=== PATIENT | female | born 1950 | race Caucasian/White ===

== ENCOUNTER 2020-05-08 11:17 | Outpatient (REF) | payer MEDICARE, SELFPAY ==
[2020-05-08 12:43] LABS: Glucose Urine UA NEG (NEG); Leukocyte Esterase Urine NEG (NEG); Nitrite Urine NEG (NEG); Specific Gravity - Urine 1.015 (1.005-1.025); Urine Blood NEG (NEG); Urine Ketones NEG (NEG); Urine Protein NEG (NEG-TRACE)
[2020-05-08 12:47] LABS: MANUAL DIFF FLAG NO
[2020-05-08 12:48] LABS: Appearance Urine CLEAR; Color Urine YELLOW
[2020-05-08 12:56] LABS: RBC Urine 0 /HPF (0); Squamous Epithelial Cell Urine TRACE /LPF; WBC Urine 0-2 /HPF (0-4)
[2020-05-08 13:00] LABS: Basophils Percent Auto 0.6 % (0-2); Eosinophils Absolute Auto 0.1 X10*3/uL (0.0-0.4); Hemoglobin 11.9 g/dl (12.0-16.0); Imm Gran Abs Auto 0.01 X10*3/uL (0.00-0.03); Imm Gran Pct Auto 0.2 % (0.0-0.4); Lymphocytes Absolute Auto 1.4 X10*3/uL (1.2-4.9); Mean Corpuscular HGB Conc 32.2 g/dl (31.0-35.0); Mean Corpuscular Hemoglobin 27.6 pg (27.0-33.0); Mean Corpuscular Volume 85.8 fL (80-98); Mean Platelet Volume 10.6 fL (9.4-12.3); Monocytes Absolute Auto 0.4 X10*3/uL (0.1-1.2); Monocytes Percent Auto 7.7 % (2-11); Neutrophils Absolute Auto 3.4 X10*3/uL (2.0-8.3); Neutrophils Percent Auto 63.5 % (45-73); Platelet Count 259 X10*3/uL (160-400); Red Blood Count 4.31 X10*6/uL (4.20-5.50); White Blood Count 5.4 X10*3/uL (4.8-10.8)
[2020-05-08 13:24] LABS: Alanine Aminotransferase 41 U/L (0-31); Albumin Level 4.3 g/dL (3.5-5.0); Alkaline Phosphatase 79 U/L (39-117); Anion Gap 11 (12-20); Aspartate Amino Transferase 28 U/L (5-31); Bilirubin Total 0.4 mg/dL (0.0-1.0); Blood Urea Nitrogen 8 mg/dL (9-16); Carbon Dioxide 29 mmol/L (22-29); Chloride 101 mmol/L (96-108); Cholesterol 161 mg/dL; Estimated Glomerular Filt Rate > 60; Glucose Fasting 82 mg/dL (60-99); HDL Cholesterol 43 mg/dL; LDL Cholesterol Calculated 84 mg/dl; Potassium 4.4 mmol/l (3.3-5.1); Sodium 137 mmol/L (135-145); Total Protein 7.4 g/dL (6.5-8.0); Triglycerides 171 mg/dL
[2020-05-08 13:47] LABS: TSH reflex Free T4 1.04 mIU/mL (0.32-4.0); Vitamin D 25-OH Total 45.3 ng/mL (>30)
[2020-05-08 14:37] LABS: Folate 19.4 ng/mL (> or = 4.0); Vitamin B12 543 pg/mL (200-900)
== END 2020-05-08 11:18 | disposition home or self-care (01) ==
LOC: HO.LAB 11:17
PROVIDERS: PCP Internal Medicine; Visit Provider Internal Medicine
DX: I10 Essential (primary) hypertension (principal); E78.5 Hyperlipidemia, unspecified; E87.1 Hypo-osmolality and hyponatremia; I67.9 Cerebrovascular disease, unspecified; R41.3 Other amnesia; D64.9 Anemia, unspecified; E55.9 Vitamin D deficiency, unspecified; E78.00 Pure hypercholesterolemia, unspecified
CPT/HCPCS: 36415; 80053; 80061; 81001; 82306; 82607; 82746; 84443; 85025

== ENCOUNTER 2020-09-10 15:55 | Outpatient (REF) | payer MEDICARE, SELFPAY ==
--- NOTE | ~2020-09-10 | XR_ITS ---
EXAMINATION: XR HIP, RIGHT CLINICAL INFORMATION: Pain right hip. COMPARISON: None TECHNIQUE: Two views of the right hip. FINDINGS: There are prominent osteoarthritic changes right hip with marked narrowing superior joint, subchondral sclerosis, subchondral cysts, and osteophytes. There are no visible erosive changes. Soft tissue planes are unremarkable. There are degenerative changes also noted lower lumbar spine with disc narrowing and spurring L4-L5 and L5-S1. XR/XR hip RT min 2V IMPRESSION: 1. Prominent osteoarthritis right hip. 2. Degenerative changes lower lumbar spine.
== END 2020-09-10 15:56 | disposition home or self-care (01) ==
LOC: HO.XRAY 15:55
PROVIDERS: PCP Internal Medicine; Visit Provider Internal Medicine
DX: M25.551 Pain in right hip (principal)
CPT/HCPCS: 73502

== ENCOUNTER → 2020-10-14 11:01 | Outpatient (BNVA) | payer MEDICARE, SELFPAY | PROVIDERS: PCP Internal Medicine; Visit Provider Orthopaedic Surgery | DX: Z13.89 Encounter for screening for other disorder (principal) | CPT/HCPCS: 99202 ==

== ENCOUNTER 2020-12-29 14:00 | Outpatient (RCR) | payer MEDICARE, SELFPAY ==
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
--- NOTE | 2020-12-29 20:01 | MHC.PT.DC ---
[facility] [place] Office [place] Office [place] Office [address] Juan Diego Zimmer [facility] [phone] F: [phone] F: [phone] F: [phone] F: [phone] Physical Therapy Discharge Report Diagnosis: UNILATERAL PRIMARY OA RIGHT HIP Date of Surgery: Date of Evaluation: 11/03/20 Date of Discharge: 12/29/20 Treatments to Date: 13 Cancellations to Date: 0 No Shows to Date: 0 Discharge Status: Independent with HEP Recommend MD Follow-up Discharge Summary: Lakshmi has been an active participant in her therapy in the clinic with poor home program participation. Her program was extended as a trial of ionto dexamethasone improved her lateral hip pain as it seemed she may have developed some bursitis at the greater trochanter and a re-commitment to her home program was agreed upon. Lakshmi has made some improvement of her gait, is improved of her lateral hip symptoms, though persists with C pattern R hip pain and continues with functional limitations. Electronically signed by: Escobar Tse PT. Please sign and return to therapist. Thank you for your referral.
== END 2020-12-30 14:40 | disposition home or self-care (01) ==
LOC: HO.PTCHIC 14:00
PROVIDERS: PCP Internal Medicine; Visit Provider Orthopaedic Surgery
DX: M16.11 Unilateral primary osteoarthritis, right hip (principal)
CPT/HCPCS: 97033; 97110; 97116; 97140; 97162

== ENCOUNTER → 2021-01-26 08:05 | Outpatient (BNVA) | payer MEDICARE, SELFPAY | PROVIDERS: PCP Internal Medicine; Visit Provider Orthopaedic Surgery | DX: M16.11 Unilateral primary osteoarthritis, right hip (principal) | CPT/HCPCS: 99212 ==

== ENCOUNTER → 2021-02-19 10:20 | Outpatient (BNVA) | payer MEDICARE, SELFPAY | PROVIDERS: PCP Internal Medicine; Visit Provider Orthopaedic Surgery | DX: M16.11 Unilateral primary osteoarthritis, right hip (principal) | CPT/HCPCS: 99212 ==

== ENCOUNTER 2021-04-09 13:30 | Outpatient (REF) | payer MEDICARE, SELFPAY ==
--- NOTE | ~2021-04-09 | MM_ITS ---
EXAMINATION: BONE DENSITOMETRY CLINICAL INDICATION: Age-related osteoporosis without current pathological fracture. COMPARISON: Baseline BD dated 05/19/2009. TECHNIQUE: Using a [employer] DXA System (software version: 13.1) manufactured by [employer], dual-energy x-ray absorptiometry was performed of the lumbar spine and left hip. The images are of good technical quality. Summary results are attached. FINDINGS: AP SPINE L1-L4: Current: BMD 1.174 g/cm2, Z-score 1.9, T-score 0.0, normal, 10.9% decrease from baseline (<5% change is not significant). Baseline: BMD 1.317 g/cm2. LEFT FEMUR, NECK: Current: BMD 0.736 g/cm2, Z-score -0.2, T-score -2.2, osteopenia. Baseline: BMD 0.954 g/cm2. LEFT FEMUR, TOTAL: Current: BMD 0.869 g/cm2, Z-score 0.7, T-score -1.1, osteopenia, 16.1% decrease from baseline (<5% change is not significant). Baseline: BMD 1.036 g/cm2. IDENTIFIED RISK FACTORS: Height loss, menopause, hysterectomy, bilateral oophorectomy. HISTORY OF FRACTURE: None listed. MEDICATIONS: Multivitamin. MM/XR DEXA axial skeleton IMPRESSION: 1. DIAGNOSIS: Osteopenia based on the lowest T-score value of -2.2 in the femoral neck applying World Health Organization criteria. 2. 10-YEAR FRACTURE RISK PREDICTION, FRAX: Major osteoporotic fracture (clinical spine, forearm, hip or shoulder) 12.6%. Hip fracture 3.1%. 3. Treatment Recommendations: NOF guidelines recommend consideration for treatment in postmenopausal women and men age 50 and older presenting with the following: -A hip or vertebral (clinical or morphometric) fracture. -T-score less than or equal to -2.5 at the femoral neck or spine after appropriate evaluation to exclude secondary causes. -Low bone mass at the hip or spine and a 10-year fracture probability by FRAX of greater than or equal to 3% for hip fracture or greater than or equal to 20% for major osteoporotic fracture based on the [place] adapted WHO algorithm. 4. Other Recommendations: All treatment decisions require clinical judgment and consideration of individual patient factors, including patient preferences, comorbidities, previous drug use, risk factors not captured in the FRAX model (e.g. frailty, falls, vitamin D deficiency, increased bone turnover, interval significant decline in bone density) and possible under or overestimation of fracture risk by FRAX. Additional medical evaluation for secondary cause of low bone mineral density may be appropriate. FUTURE SCAN RECOMMENDATION: People with diagnosed cases of osteoporosis or at high risk for fracture should have regular bone mineral density tests. For patients eligible for Medicare, routine testing is allowed once every 2 years. The testing frequency can be increased to one year for patients who have rapidly progressing disease, those who are receiving or discontinuing medical therapy to restore bone mass, or have additional risk factors.
--- NOTE | ~2021-04-09 | MM_ITS ---
EXAMINATION: MM SCREENING DIGITAL BREAST TOMOSYNTHESIS, BILATERAL CLINICAL INFORMATION: Screening. Asymptomatic. The lifetime risk of breast cancer based on the Tyrer-Cuzick Model is 3%. COMPARISON: Mammography: 02/26/2020, 11/26/2018, 11/06/2017 TECHNIQUE: Digital breast tomosynthesis is performed in both the craniocaudal and mediolateral oblique views along with computer-aided detection (CAD). Synthesized 2D images are generated from the tomosynthesis. FINDINGS: There are scattered areas of fibroglandular density (ACR BI-RADS breast composition Category b). Parenchymal pattern is similar to prior studies. There is no developing density or interval mass or architectural abnormality. Bilateral scattered benign round and vascular calcifications are again seen. The axilla and skin contours are unremarkable. No significant changes. MM/MM tomosynthesis screening BI IMPRESSION: No mammographic evidence of malignancy. ASSESSMENT: BI-RADS 2: Benign RECOMMENDATION: Routine annual mammography screening. This patient's information was entered into a reminder system with a target due date for their next mammogram.
== END 2021-04-09 13:31 | disposition home or self-care (01) ==
LOC: HO.MAMMO 13:30
PROVIDERS: Visit Provider Internal Medicine
DX: Z12.31 Encounter for screening mammogram for malignant neoplasm of breast (principal); Z13.820 Encounter for screening for osteoporosis; M81.0 Age-related osteoporosis without current pathological fracture; Z78.0 Asymptomatic menopausal state; Z79.899 Other long term (current) drug therapy
CPT/HCPCS: 77063; 77067; 77080

== ENCOUNTER 2021-04-15 11:45 | Outpatient (REF) | payer MEDICARE, SELFPAY ==
--- NOTE | ~2021-04-15 | XR_ITS ---
EXAMINATION: XR PELVIS CLINICAL INFORMATION: Hip pain COMPARISON: Previous x-ray right hip August 2020 TECHNIQUE: AP view of the pelvis. FINDINGS: There is severe arthritis of the right hip joint with joint space narrowing, osteophyte formation and subchondral cyst formation. This is similar to previous x-ray August 2020. There is mild arthritis at the left hip joint with joint space narrowing and osteophyte formation. Also the pelvis are unremarkable. The joint spaces are otherwise normal. Soft tissues are normal. There are degenerative changes of the visualized lower lumbar spine. XR/XR pelvis 1-2V IMPRESSION: Bilateral hip arthritis, right greater than left.
== END 2021-04-15 11:46 | disposition home or self-care (01) ==
LOC: HO.HOSX 11:45
PROVIDERS: Visit Provider Orthopaedic Surgery
DX: M16.11 Unilateral primary osteoarthritis, right hip (principal)
CPT/HCPCS: 72170; 99212

== ENCOUNTER 2021-04-26 12:22 | Outpatient (REF) | payer MEDICARE, SELFPAY ==
[2021-04-26 12:35] LABS: MANUAL DIFF FLAG NO
[2021-04-26 12:59] LABS: Basophils Percent Auto 0.8 % (0-2); Eosinophils Percent Auto 0.4 % (0-4); Hematocrit 37.9 % (37.0-47.0); Hemoglobin 12.2 g/dl (12.0-16.0); Imm Gran Abs Auto 0.01 X10*3/uL (0.00-0.03); Imm Gran Pct Auto 0.2 % (0.0-0.4); Lymphocytes Absolute Auto 1.4 X10*3/uL (1.2-4.9); Lymphocytes Percent Auto 25.8 % (20-40); Mean Corpuscular HGB Conc 32.2 g/dl (31.0-35.0); Mean Corpuscular Hemoglobin 28.8 pg (27.0-33.0); Mean Corpuscular Volume 89.4 fL (80.0-98.0); Mean Platelet Volume 9.4 fL (9.4-12.3); Monocytes Absolute Auto 0.6 X10*3/uL (0.1-1.2); Monocytes Percent Auto 11.1 % (2-11); Neutrophils Absolute Auto 3.2 x10*3/uL (2.0-8.3); Neutrophils Percent Auto 61.7 % (45-73); Platelet Count 286 X10*3/uL (160-400); Red Blood Count 4.24 X10*6/uL (4.20-5.50); Red Cell Distribution Width 13.9 % (11.0-16.0); White Blood Count 5.2 X10*3/uL (4.8-10.8)
[2021-04-26 13:03] LABS: Appearance Urine HAZY; Color Urine YELLOW; Glucose Urine UA NEG (NEG); Leukocyte Esterase Urine NEG (NEG); Nitrite Urine NEG (NEG); Specific Gravity - Urine 1.025 (1.005-1.025); Urine Blood NEG (NEG); Urine Ketones 5 MG/DL (NEG); Urine Protein TRACE MG/DL (NEG-TRACE)
[2021-04-26 13:24] LABS: Alanine Aminotransferase 41 U/L (0-31); Albumin Level 4.6 g/dL (3.5-5.0); Alkaline Phosphatase 66 U/L (39-117); Anion Gap 15 (12-20); Aspartate Amino Transferase 34 U/L (5-31); Bilirubin Total 1.1 mg/dL (0.0-1.0); Blood Urea Nitrogen 16 mg/dL (9-16); Calcium 9.6 mg/dL (8.4-10.2); Carbon Dioxide 24 mmol/L (22-29); Chloride 105 mmol/L (96-108); Cholesterol 226 mg/dL; Estimated Glomerular Filt Rate > 60; Glucose Fasting 103 mg/dL (60-99); HDL Cholesterol 70 mg/dL; LDL Cholesterol Calculated 119 mg/dl; Potassium 4.5 mmol/L (3.3-5.1); Sodium 139 mmol/L (135-145); Triglycerides 188 mg/dL
[2021-04-26 13:46] LABS: TSH reflex Free T4 1.51 uIU/mL (0.32-4.0)
[2021-04-26 14:16] LABS: Folate > 20.0 ng/mL (> or = 4.0); Vitamin B12 352 pg/mL (200-900)
== END 2021-04-26 12:23 | disposition home or self-care (01) ==
LOC: HO.LAB 12:22
PROVIDERS: PCP Internal Medicine; Visit Provider Internal Medicine
DX: D64.9 Anemia, unspecified (principal); I10 Essential (primary) hypertension; I67.89 Other cerebrovascular disease; R41.3 Other amnesia; E78.00 Pure hypercholesterolemia, unspecified; E87.1 Hypo-osmolality and hyponatremia
CPT/HCPCS: 36415; 80053; 80061; 81003; 82607; 82746; 84443; 85025

== ENCOUNTER 2021-06-01 09:59 | Outpatient (REF) | payer MEDICARE, SELFPAY ==
--- NOTE | 2021-06-01 11:46 | ECG_ITS ---
Test Reason : preproc exam Blood Pressure : / mmHG Vent. Rate : 066 BPM Atrial Rate : 066 BPM P-R Int : 140 ms QRS Dur : 108 ms QT Int : 432 ms P-R-T Axes : 061 086 062 degrees QTc Int : 452 ms Normal sinus rhythm Incomplete right bundle branch block Borderline ECG No previous ECGs available Referred By: Valdemar Palacios Electronically Signed By:JESSE BLAIR MD
[2021-06-01 11:50] LABS: MANUAL DIFF FLAG NO
[2021-06-01 12:10] LABS: Basophils Absolute Auto 0.1 X10*3/uL (0.0-0.2); Basophils Percent Auto 0.8 % (0-2); Eosinophils Absolute Auto 0.1 X10*3/uL (0.0-0.4); Eosinophils Percent Auto 0.7 % (0-4); Hematocrit 37.8 % (37.0-47.0); Hemoglobin 11.9 g/dl (12.0-16.0); Imm Gran Abs Auto 0.04 X10*3/uL (0.00-0.03); Imm Gran Pct Auto 0.5 % (0.0-0.4); Lymphocytes Absolute Auto 1.5 X10*3/uL (1.2-4.9); Lymphocytes Percent Auto 20.1 % (20-40); Mean Corpuscular HGB Conc 31.5 g/dl (31.0-35.0); Mean Corpuscular Hemoglobin 28.5 pg (27.0-33.0); Mean Corpuscular Volume 90.6 fL (80.0-98.0); Mean Platelet Volume 9.6 fL (9.4-12.3); Monocytes Absolute Auto 0.4 X10*3/uL (0.1-1.2); Monocytes Percent Auto 5.1 % (2-11); Neutrophils Absolute Auto 5.4 x10*3/uL (2.0-8.3); Neutrophils Percent Auto 72.8 % (45-73); Platelet Count 290 X10*3/uL (160-400); Red Blood Count 4.17 X10*6/uL (4.20-5.50); Red Cell Distribution Width 13.6 % (11.0-16.0); White Blood Count 7.5 X10*3/uL (4.8-10.8)
[2021-06-01 12:39] LABS: Anion Gap 14 (12-20); Blood Urea Nitrogen 11 mg/dL (9-16); Calcium 9.5 mg/dL (8.4-10.2); Carbon Dioxide 23 mmol/L (22-29); Chloride 105 mmol/L (96-108); Estimated Glomerular Filt Rate > 60; Glucose Random 86 mg/dL (60-115); Potassium 4.4 mmol/L (3.3-5.1); Sodium 138 mmol/L (135-145)
== END 2021-06-01 10:00 | disposition home or self-care (01) ==
LOC: HO.LAB 09:59
PROVIDERS: PCP Internal Medicine; Visit Provider Orthopaedic Surgery
DX: Z01.812 Encounter for preprocedural laboratory examination (principal); Z01.810 Encounter for preprocedural cardiovascular examination
CPT/HCPCS: 36415; 80048; 85025; 93005

== ENCOUNTER 2021-06-15 13:49 | Outpatient (REF) | payer MEDICARE, SELFPAY ==
[2021-06-16 11:11] LABS: MRSA Nasal PCR NEGATIVE (Negative); SA Nasal PCR NEGATIVE (Negative)
== END 2021-06-15 13:50 | disposition home or self-care (01) ==
LOC: HO.LNP 13:49
PROVIDERS: Visit Provider Orthopaedic Surgery
DX: Z01.812 Encounter for preprocedural laboratory examination (principal); I10 Essential (primary) hypertension; E78.00 Pure hypercholesterolemia, unspecified; E55.9 Vitamin D deficiency, unspecified; R79.89 Other specified abnormal findings of blood chemistry
CPT/HCPCS: 87081; 87640; 87641

== ENCOUNTER → 2021-06-24 12:58 | Outpatient (BNVA) | payer MEDICARE, SELFPAY | PROVIDERS: Visit Provider Physician Assistant | DX: Z01.818 Encounter for other preprocedural examination (principal); M16.11 Unilateral primary osteoarthritis, right hip | CPT/HCPCS: 99202; 99212 ==

== ENCOUNTER 2021-07-14 06:15 | Inpatient (IN) | payer MEDICARE, SELFPAY ==
[2021-06-15 12:51] VITALS: BP 160/73; PULSE 52; RESP 16; O2SAT 99; BMI 21.4
--- NOTE | 2021-07-13 12:19 | HO.ANESPROP2 ---
Documented by User: Cathy Riggins NP 07/13/21 12:22 HPI - Anesthesia Eval Consult details Narrative: 71yo F for Right Hip Total Replacement PCP cleared Hx of hyponatremia, ? r/t drinking, which patient has now stopped. Last serum Na wnl. PMFSH Active Problems Active Problems: All Active Problems (Updated 06/17/21 @ 04:22 by Amadeo Page MD) Pre-operative exam (Acute) Elevated LFTs (Acute) Hip osteoarthritis (Acute) Liver cyst (Acute) Primary osteoarthritis of right hip (Acute) Right hip pain (Acute) Vitamin D deficiency (Acute) Anemia (Acute) Memory impairment (Acute) Cerebral microvascular disease (Acute) Hyponatremia (Acute) Pure hypercholesterolemia (Acute) Benign essential hypertension (Acute) Past Medical History Medical History Anemia Benign essential hypertension Cerebral microvascular disease Hyponatremia Memory impairment Pure hypercholesterolemia Right hip pain Vitamin D deficiency Family History Family History Father Colon cancer Mother Melanoma Brother Dementia Surgical History Surgical History History of colonoscopy History of surgery History of tonsillectomy History of total abdominal hysterectomy Social History Social History Household Members Other:: daughter Housing: Condominium Are you a primary insurance healthcare representative to a significant other at home: No Do you presently have visiting nurse or other home services: No Alcohol intake: current Alcohol intake frequency: a few times a week Alcohol type: wine Patient Tobacco Use Status: Former Tobacco user Quit Date: 1968 Tobacco use type: Cigarette Second Hand Smoke Exposure: Yes Use of substances other than those prescribed or required for medical reasons: No Have you been hit, kicked, punched, or otherwise hurt by someone within the past year? 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 Meds Allergies Allergy/AdvReac Type Severity Reaction Status Date / Time Sulfa (Sulfonamide Allergy Intermediate Unknown Verified 06/24/21 13:12 Antibiotics) sulfamethoxazole Allergy Intermediate Unknown Verified 06/24/21 13:12 [From BACTRIM] trimethoprim [From BACTRIM] Allergy Intermediate Unknown Verified 06/24/21 13:12 Iodinated Contrast Media Allergy Unknown SWELLING, Verified 06/24/21 13:12 [IV CONTRAST] RASH iodine [IODINE] Allergy Unknown swelling,RA Verified 06/24/21 13:12 Home Medications Medication Instructions Recorded Confirmed Last Taken Type multivitamin 1 tab PO DAILY 05/08/20 06/17/21 Unknown History Exam Exam Date and Time: July 13, 2021 1219 Height,Weight and Vital Signs: Height 5 ft 4 in Weight 56.6 kg Last Vital Signs Pulse 52 06/15/21 12:51 Resp 16 06/15/21 12:51 BP 160/73 H 06/15/21 12:51 Pulse Ox 99 06/15/21 12:51 Pertinent Lab Results Pertinent Lab Results: Laboratory Tests 06/15/21 13:45 Blood Type A Positive Antibody Screen NEGATIVE Laboratory Tests 06/01/21 06/01/21 11:48 11:48 WBC 7.5 Hgb 11.9 L Hct 37.8 Plt Count 290 Sodium 138 Potassium 4.4 Chloride 105 Carbon Dioxide 23 BUN 11 Creatinine 0.79 Narrative Narrative: EKG 05/2021 Vent. Rate : 066 BPM ? ? Atrial Rate : 066 BPM ?? P-R Int : 140 ms? QRS Dur : 108 ms ? ? QT Int : 432 ms ? ? ? P-R-T Axes : 061 086 062 degrees ?? QTc Int : 452 ms ? Normal sinus rhythm Incomplete right bundle branch block Borderline ECG No previous ECGs available Assessment and Plan Assessment Anesthesia Assessment: Chart Reviewed Documented by User: Con Sharif 07/14/21 07:25 [facility] Past Medical History Medical History Anemia Benign essential hypertension Cerebral microvascular disease Hyponatremia Memory impairment Pure hypercholesterolemia Right hip pain Vitamin D deficiency Family History Family History Father Colon cancer Mother Melanoma Brother Dementia Family history of problems with anesthesia: No Surgical History Surgical History History of colonoscopy History of surgery History of tonsillectomy History of total abdominal hysterectomy History of Problems with Anesthesia: No Social History Social History Household Members Other:: daughter Housing: Condominium Are you a primary insurance healthcare representative to a significant other at home: No Do you presently have visiting nurse or other home services: No Alcohol intake: current Alcohol intake frequency: a few times a week Alcohol type: wine Patient Tobacco Use Status: Former Tobacco user Quit Date: 1968 Tobacco use type: Cigarette Second Hand Smoke Exposure: Yes Use of substances other than those prescribed or required for medical reasons: No Have you been hit, kicked, punched, or otherwise hurt by someone within the past year? 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 Meds Allergies Allergy/AdvReac Type Severity Reaction Status Date / Time Sulfa (Sulfonamide Allergy Intermediate Unknown Verified 06/24/21 13:12 Antibiotics) sulfamethoxazole Allergy Intermediate Unknown Verified 06/24/21 13:12 [From BACTRIM] trimethoprim [From BACTRIM] Allergy Intermediate Unknown Verified 06/24/21 13:12 Iodinated Contrast Media Allergy Unknown SWELLING, Verified 06/24/21 13:12 [IV CONTRAST] RASH iodine [IODINE] Allergy Unknown swelling,RA Verified 06/24/21 13:12 Home Medications Medication Instructions Recorded Confirmed Last Taken Type multivitamin 1 tab PO DAILY 05/08/20 06/17/21 Unknown History Exam Airway Mallampati Class: III TM Dist: >3cm Neck ROM: Full Loose/Missing/Broken Teeth: Yes ([place]) Heart: rrr Lungs: bl breath sounds Assessment and Plan Assessment Anesthesia Assessment: Anesthesia Plan Discussed Final Anesthetic Review Family History of Problems with Anesthesia: No History of Problems with Anesthesia: No NPO: Yes ASA Class: III Final Preanesthetic Review: Meds/Allgs Chart Reviewed and Anes Risks/Benef Reviewed Patient Risk: Intermediate Procedure Risk: Intermediate Anesthetic Plan Anesthetic Plan: GA Disposition: Inp. Admit - Standard Bed
[2021-07-14] VITALS (15 sets, daily range): BP systolic 136–164; BP diastolic 56–83; PULSE 49–89; RESP 15–18; TEMP 36.1–37.8; O2SAT 95–100
--- NOTE | ~2021-07-14 | XR_ITS ---
EXAMINATION: XR PELVIS CLINICAL INFORMATION: Right hip pain postop COMPARISON: April 15, 2021 TECHNIQUE: AP view of the pelvis. FINDINGS: AP view of the pelvis performed which does not include the iliac crest. Patient is status post right total hip arthroplasty. There is some increased density seen about the medial aspect left of the proximal femur likely just postoperative in nature with possible overlying lesser trochanter and less likely possible nondisplaced fracture. The acetabular and femoral components appear in good position. Gas is seen within the overlying soft tissues from the recent surgery and staple line is noted. No acute fracture or diastases of the pelvis is identified. XR/XR pelvis 1-2V IMPRESSION: Sclerotic region about the medial lip of the proximal femur likely being normal postoperative appearance however would recommend other views to rule out a question nondisplaced fracture.
--- NOTE | 2021-07-14 06:26 | PC.NURSE ---
patient is allergic to iodine. rash and swelling. i did not do the nasal swab due to her allergy.
[2021-07-14] MEDS: oxyCODONE HCl ER 10 MG TAB.ER.12H PO (06:35)
[2021-07-14 07:09] LABS: COVID-19 Test Negative (Negative)
[2021-07-14] MEDS: Lactated Ringers 1,000 ML 100 ML IVCONT (07:12)
--- NOTE | 2021-07-14 07:32 | MHC.SHP ---
Pre-Procedural Eval Section A Date of Service: 07/14/21 The patient is an INPATIENT: No Changes since office visit: Yes Patient answered all questions; No Cold of Flu in the past 2 weeks, No New Medical Problems and No Changes in Medication The History & Physical has been completed within 30 days and I have reviewed it.: Yes Section B Chief Complaint: RT DYLON Allergies: Allergies Allergy/AdvReac Type Severity Reaction Status Date / Time Sulfa (Sulfonamide Allergy Intermediate Unknown Verified 06/24/21 13:12 Antibiotics) sulfamethoxazole Allergy Intermediate Unknown Verified 06/24/21 13:12 [From BACTRIM] trimethoprim [From BACTRIM] Allergy Intermediate Unknown Verified 06/24/21 13:12 Iodinated Contrast Media Allergy Unknown SWELLING, Verified 06/24/21 13:12 [IV CONTRAST] RASH iodine [IODINE] Allergy Unknown swelling,RA Verified 06/24/21 13:12 SH Plan I have reviewed the history and physical and performed a pertinent physical examination on my patient. No changes have occurred unless specified.
--- NOTE | 2021-07-14 09:32 | P.BOP_ITS ---
Brief Operative Note Date of Service: 07/14/21 Pre-op diagnosis: Right hip OA Post-op diagnosis: same Procedure: Right DYLON Implants: [employer]av[employer] Trident2 50mm Accolade 2 #3 127 deg with + 5 36 ceramic femoral head Surgeon: Valdemar Palacios MD Anesthesia: GETA and local Was an Viscose Department Worker used for this Procedure?: Yes Viscose Department Worker: Leeanne Orozco Estimated blood loss (mL): 150 IV fluids (mL): 1,000 Pathology: other Condition: stable Disposition: PACU
--- NOTE | 2021-07-14 09:45 | W.PM.OPN ---
Operative Note Operative Note Date of Service: 07/14/21 Narrative: Date of Service: 07/14/21 Pre-op diagnosis: Right hip OA Post-op diagnosis: same Procedure: Right DYLON Implants: [place] Trident2 50mm Accolade 2 #3 127 deg with + 5 36 ceramic femoral head Surgeon: Valdemar Palacios MD Anesthesia: GETA and local Was an Director Speech And Hearing used for this Procedure?: Yes Director Speech And Hearing: Leeanne Orozco Estimated blood loss (mL): 150 IV fluids (mL): 1,000 Pathology: other Condition: stable Disposition: PACU Procedure in detail: Patient was brought into the operating room and placed in the Left lateral decubitus position. All bony prominences were well padded and the limb was prepped and draped in standard sterile fashion. Time-out was called to identify proper site procedure proper surgeon IV antibiotics and 1 g of transaxemic acid were administered. I began by making a curvilinear incision over the posterolateral aspect of the greater trochanter. Dissection was taken down to the tensor fascia which was incised in line with the incision and a Charnley retractor was placed. Cautery was used to maintain hemostasis. The hip was internally rotated and the external rotators were identified. The vessels were cauterized and a full-thickness capsular/external rotator layer was developed starting just proximal to the piriformis. This layer was tagged and a dull Hohmann retractor was placed underneath the neck in the hip was dislocated. The head was eburnated and deformed. A neck cut was made 1 cm proximal to the lesser trochanter and the head and neck were removed and measured on the back table. I placed my antyerior and posterior acetabular retractors and perfomed a labrectomy. Posterior soft tissues were protected at all times. I used cautery to debride the foveaand then, using a 44 mm reamer, medialixzed. I then sequentially reamed up to a size 50 and impacted a 50 mm cup at approximately 45 degrees of inclination and 25 degrees of version. I then placed a neutral liner and turned my attention to the femur. I identified the piriformis insertion and used this as a starting point for my cheryle cutter. The medius tendon was protected with a Hibs retractor. I then used a Charnley awl to identify the canal and a curved curette to remove the lateral bone. I irrigated copiously. I then sequentially broached in the patient's natural version to a size #3 and placed my trial implants. Using a +5 trail head and a 127deg neck I took the hip through range of motion. I was very satisfied with the stability and length. Therefore I removed all instrumentation and copiously irrigated. I placed my final femoral implant and again took the hip through range of motion and was satisfied with the stability and length. My final + 5 36 ceramic head was impacted and the hip was relocated. I then irrigated for 3 minutes with iodine and placed 1 g of local tranaxemic acid. I then performed a capsular closure with 2.0 fiberwire, Yazmin's fascia with 0 Vicryl, subcuticular with 2-0 Vicryl and the skin with judy. Patient was placed into a sterile dressing. Radiographs were obtained at the completion of the case and I was satisfied with the component position. Patient was extubated brought to the recovery room in stable condition.
[2021-07-14] MEDS: HYDROmorphone HCl 0.5 MG/0.5 ML SYRINGE 0.25 MG IVPUSH ×3 (09:55→10:30)
--- NOTE | 2021-07-14 12:27 | MHC.CM.PN ---
MET WITH PT WHO EXPLINS THAT SHE LIVES WITH HER DGTER DANNIE WHO IS HER HCP WELL HER PCP IS LISA PT THINKS SHE HAD A VNA IN THE PAST PT DC PLAN TBD /STR VS HOME WITH VNA PENDING PT ARSEN
[2021-07-14] MEDS: Dextrose 5 % and 0.45 % NaCl 1,000 ML 80 ML IVCONT (12:42)
--- NOTE | 2021-07-14 14:34 | P.CONHOSP_ITS ---
History of Present Illness Data of Consult Service Date: 07/14/21 <Charlette Hitchcock NP - Last Filed: 07/14/21 17:41> Requesting physician: Valdemar Palacios <Charlette Hitchcock NP - Last Filed: 07/14/21 17:41> Primary Care Provider: Amadeo Page MD <Charlette Hitchcock NP - Last Filed: 07/14/21 17:41> HPI 71-year-old woman with history of hyperlipidemia, hypertension admitted by Orthopedic surgery and is status post total hip arthroplasty. Patient is doing well resting in bed no acute medical complaints. Vital signs are stable. <Charlette Hitchcock NP - Last Filed: 07/14/21 17:41> Review of Systems Verdana 4l Review of Systems: Verdana 4d Verdana 4d Denies any recent fever chills or decrease in appetite respiratory denies any shortness of breath coverage production cardiovascular denies chest pain gastrointestinal denies any dysphagia abdominal pain nausea vomiting or diarrhea genitourinary denies any dysuria frequency or hematuria musculoskeletal denies any joint pain or swelling neuropsych denies any weakness or seizures all other systems reviewed are negative <Charlette Hitchcock NP - Last Filed: 07/14/21 17:41> [facility] Medical History: Medical History Anemia Benign essential hypertension Cerebral microvascular disease Hyponatremia Memory impairment Pure hypercholesterolemia Right hip pain Vitamin D deficiency <Charlette Hitchcock NP - Last Filed: 07/14/21 17:41> Family History: Family History Father Colon cancer Mother Melanoma Brother Dementia <Charlette Hitchcock NP - Last Filed: 07/14/21 17:41> Surgical History: Surgical History History of colonoscopy History of surgery History of tonsillectomy History of total abdominal hysterectomy <Charlette Hitchcock NP - Last Filed: 07/14/21 17:41> Social History: Social History Household Members: Children Household Members Other:: daughter Housing: Condominium Are you a primary rehab care assistant to a significant other at home: No Do you presently have visiting nurse or other home services: No Alcohol intake: current Alcohol intake frequency: a few times a week Alcohol type: wine Patient Tobacco Use Status: Former Tobacco user Quit Date: 1968 Tobacco use type: Cigarette Second Hand Smoke Exposure: Yes service: No Current occupational status: employed 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 <Charlette Hitchcock NP - Last Filed: 07/14/21 17:41> Meds Allergies/Adverse reactions: Allergies Allergy/AdvReac Type Severity Reaction Status Date / Time Sulfa (Sulfonamide Allergy Intermediate Unknown Verified 06/24/21 13:12 Antibiotics) sulfamethoxazole Allergy Intermediate Unknown Verified 06/24/21 13:12 [From BACTRIM] trimethoprim [From Allergy Intermediate Unknown Verified 06/24/21 13:12 BACTRIM] Iodinated Contrast Allergy Unknown SWELLING, Verified 06/24/21 13:12 Media [IV CONTRAST] RASH iodine [IODINE] Allergy Unknown swelling,RA Verified 06/24/21 13:12 SH <Charlette Hitchcock NP - Last Filed: 07/14/21 17:41> Active Medications: Current Medications Acetaminophen (Acetaminophen 325 Mg Tablet) 650 mg PO Q6H PRN PRN Reason: Pain, Mild (Pain Scale 1-3) Atorvastatin Calcium (Atorvastatin Calcium 10 Mg Tablet) 10 mg PO DAILY AMEYA Celecoxib (Celecoxib 200 Mg Capsule) 200 mg PO BID AME[facility] Docusate Sodium (Docusate Sodium 100 Mg Capsule) 100 mg PO BID AMEYA Donepezil HCl (Donepezil Hcl 5 Mg Tablet) 5 mg PO BEDTIME AMEYA Hydromorphone HCl (Hydromorphone Hcl 1 Mg/Ml Syringe) 0.25 mg IVPUSH Q4H PRN; Protocol PRN Reason: Pain, Severe (Pain Scale 7-10) Dextrose/Sodium Chloride (D51/2ns) 1,000 mls @ 80 mls/hr IVCONT .[id number] [facility] Last Admin: 07/14/21 12:42 Dose: 80 mls/hr Documented by: Cefazolin Sodium/Dextrose (Ancef) 2 gm in 50 mls @ 100 mls/hr IV POSTOP AMEYA Oxycodone HCl (Oxycodone Hcl Immed Release 5 Mg Tablet) 5 mg PO Q4H PRN PRN Reason: Pain, Moderate (Pain Scale 4-6 Sodium Chloride (0.9 % Sodium Chloride Flush 3 Ml Syringe) 3 ml IVFLUSH QSHIFT AMEYA <Charlette Hitchcock NP - Last Filed: 07/14/21 17:41> Home medications: Home Medications Medication Instructions Recorded Confirmed Last Taken Type multivitamin 1 tab PO DAILY 05/08/20 06/17/21 Unknown History <Charlette Hitchcock NP - Last Filed: 07/14/21 17:41> Physical Exam Verdana 4l Vital Signs and Narrative: Verdana 4d Verdana 4d Vital Signs: Verdana 4d Verdana 4Bd Last Vital Signs Verdana 4d Header Operator New 4d Header Operator New 4d Temp 97.3 F 07/14/21 12:02 Header Operator New 4d Pulse 67 07/14/21 12:02 Header Operator New 4d Resp 18 07/14/21 12:02 BP 164/78 H 07/14/21 12:02 Pulse Ox 95 07/14/21 12:02 BMI result Body Mass Index 21.4 <Charlette Hitchcock NP - Last Filed: 07/14/21 17:41> Appearing in no acute distress head is normocephalic atraumatic eyes pupils are PERRLA sclera is anicteric mouth throat mucous membranes are intact and moist neck is supple no lymphadenopathy, no JVD noted lung sounds are clear to auscultation heart regular rate rhythm, clear S1, S2 positive bowel sounds, abdomen is soft, nontender neuro patient is alert x3, no focal deficits MSK right hip dressing intact. surgical dressing on, incision not visualized <Charlette Hitchcock NP - Last Filed: 07/14/21 17:41> Results Labs Labs: Laboratory Results - last 24 hr 07/14/21 07/14/21 06:21 06:45 COVID-19 ([facility]) Negative COVID-19 Clin Com See Note Blood Type A Positive Antibody Screen NEGATIVE <Charlette Hitchcock NP - Last Filed: 07/14/21 17:41> Imaging Radiologist's Impressions: Impressions Pelvis X-Ray 07/14/21 10:05 IMPRESSION: Sclerotic region about the medial lip of the proximal femur likely being normal postoperative appearance however would recommend other views to rule out a question nondisplaced fracture. <Charlette Hitchcock NP - Last Filed: 07/14/21 17:41> Assessment and Plan (1) Benign essential hypertension: Status: Acute <Charlette Hitchcock NP - Last Filed: 07/14/21 17:41> Plan 71-year-old woman admitted by orthopedic surgery and is status post right hip arthroplasty Right hip arthroplasty Management as per surgical team Pain management Hyperlipidemia on statin at home Hypertension continue lisinopril DVT prophylaxis as per surgical team Attending Dr. Alarcon Full code <Charlette Hitchcock NP - Last Filed: 07/14/21 17:41> 71-year-old woman admitted by orthopedic surgery and is status post right hip arthroplasty Right hip arthroplasty pod #1 pain Management / anticoagulation as per surgical team Hyperlipidemia continue Lipitor home dose Hypertension continue lisinopril DVT prophylaxis as per surgical team Full code addendum by Dr. Alarcon patient seen examined case discussed with APC, patient underwent right total hip arthroplasty, at present awake alert complaining of hip pain, otherwise denies chest pain, no shortness of breath, no nausea no vomiting no abdominal pain, tolerated dinner vitals BP 144/65, pulse 73 O2 sat 99% on room air general awake alert no distress lungs clear to auscultation extremities no edema assessment and plan 71-year-old female patient with history of hypertension, hyperlipidemia, status post back surgery admitted for elective right total hip arthroplasty, noted to have elevated blood pressures since skipped her lisinopril this a.m., recommend to continue all home medications discontinue IV fluid/ follow clinical course. <Robert Alarcon MD - Last Filed: 07/14/21 18:30>
[2021-07-14] MEDS: HYDROmorphone HCl 1 MG/ML SYRINGE 0.25 MG IVPUSH (19:23)
[2021-07-14] MEDS: Docusate Sodium 100 MG CAPSULE PO (21:27)
[2021-07-14] MEDS: Donepezil HCl 5 MG TABLET PO (21:27)
[2021-07-14] MEDS: Celecoxib 200 MG CAPSULE PO (21:27)
[2021-07-15] VITALS (10 sets, daily range): BP systolic 100–153; BP diastolic 51–68; PULSE 74–97; RESP 16–18; TEMP 36.9–37.3; O2SAT 97–100
[2021-07-15] MEDS: Dextrose 5 % and 0.45 % NaCl 1,000 ML 80 ML IVCONT (00:11)
[2021-07-15] MEDS: oxyCODONE HCl Immed Release 5 MG TABLET PO ×2 (00:54→20:47)
[2021-07-15 05:43] LABS: MANUAL DIFF FLAG NO
[2021-07-15 05:47] LABS: Basophils Percent Auto 0.2 % (0-2); Eosinophils Percent Auto 0.1 % (0-4); Hematocrit 30.1 % (37.0-47.0); Hemoglobin 9.7 g/dl (12.0-16.0); Imm Gran Abs Auto 0.02 X10*3/uL (0.00-0.03); Imm Gran Pct Auto 0.2 % (0.0-0.4); Lymphocytes Absolute Auto 1.8 X10*3/uL (1.2-4.9); Mean Corpuscular HGB Conc 32.2 g/dl (31.0-35.0); Mean Corpuscular Hemoglobin 28.4 pg (27.0-33.0); Mean Corpuscular Volume 88.3 fL (80.0-98.0); Mean Platelet Volume 10.2 fL (9.4-12.3); Monocytes Absolute Auto 1.3 X10*3/uL (0.1-1.2); Monocytes Percent Auto 12.9 % (2-11); Neutrophils Absolute Auto 6.7 x10*3/uL (2.0-8.3); Neutrophils Percent Auto 68.6 % (45-73); Platelet Count 190 X10*3/uL (160-400); Red Blood Count 3.41 X10*6/uL (4.20-5.50); Red Cell Distribution Width 12.4 % (11.0-16.0); White Blood Count 9.8 X10*3/uL (4.8-10.8)
[2021-07-15 06:27] LABS: Anion Gap 12 (12-20); Blood Urea Nitrogen 13 mg/dL (9-16); Calcium 8.5 mg/dL (8.4-10.2); Carbon Dioxide 24 mmol/L (22-29); Chloride 103 mmol/L (96-108); Creatinine Clr Calc Pharmacy 62.7; Estimated Glomerular Filt Rate > 60; Glucose Fasting 115 mg/dL (60-99); Potassium 4.1 mmol/L (3.3-5.1); Sodium 135 mmol/L (135-145)
--- NOTE | 2021-07-15 06:56 | PHA.MEDREC ---
Pharmacy Consult ? Medication Reconciliation Pharmacy has reviewed the medication reconciliation. There are no remarkable issues. Lisinopril was continued by the provider however not active in the medication list. It was filled June of 2021. Ashlee Hart, KurtisD
--- NOTE | 2021-07-15 06:56 | HO.POSTANES ---
Post Anesthesia Evaluation Post Anesthesia Evaluation Vital Signs: Vital Signs Temp Pulse Resp BP Pulse Ox 07/15/21 03:25 98.6 F 75 17 153/68 H 99 07/15/21 00:00 98.4 F 74 17 144/62 H 99 07/14/21 19:05 100.1 F 76 18 148/66 H 98 Anesthesia: General Mental Status: Awake Pain Control: Satisfactory Nausea/Vomiting: None Hydration: Adequate Anesthesia-Related Issues: No Anes. Related Issues
[2021-07-15] MEDS: Docusate Sodium 100 MG CAPSULE PO ×2 (07:48→20:43)
[2021-07-15] MEDS: Multivitamin TABLET 1 TAB PO (07:48)
[2021-07-15] MEDS: Atorvastatin Calcium 10 MG TABLET PO (07:48)
[2021-07-15] MEDS: Celecoxib 200 MG CAPSULE PO ×2 (07:48→20:43)
[2021-07-15] MEDS: lisinopriL 5 MG TABLET PO (07:48)
[2021-07-15] MEDS: HYDROmorphone HCl 1 MG/ML SYRINGE 0.25 MG IVPUSH (07:48)
[2021-07-15] MEDS: 0.9 % Sodium Chloride Flush 3 ML SYRINGE IVFLUSH ×3 (07:49→22:49)
--- NOTE | 2021-07-15 09:05 | P.PNOP_ITS ---
Subjective Subjective Date of Service: 07/15/21 Interval history: POD1 s/p RTHA with Dr. Palacios. Pain is well managed. Patient is sitting in the chair. No overnight events. No additional complaints. Physical Exam Verdana 4l Vital Signs: Verdana 4d Verdana 4d Vital Signs: Verdana 4d Verdana 4Bd Last Vital Signs Verdana 4d Public Health Informatician New 4d Public Health Informatician New 4d Temp 99.2 F 07/15/21 07:00 Public Health Informatician New 4d Pulse 88 07/15/21 08:53 Public Health Informatician New 4d Resp 18 07/15/21 07:00 BP 145/59 H 07/15/21 08:53 Pulse Ox 97 07/15/21 08:53 BMI result Body Mass Index 21.4 Const: General: cooperative, healthy appearing and no acute distress Resp: Effort & Inspection: normal respiratory effort and able to speak in complete sentences Cardio: Rate: regular rate Peripheral pulses: Peripheral pulses 2+ throughout GI: Palpation (GI): Soft to palpation Skin: Lesions: no lesions Rashes: no rashes Extrem: Other: Right hip aquacel is clean dry and intact. NVI. Procedures Date of Service Date of Service: 07/15/21 Progress Note: A&P Assessment and plan (1) Status post total replacement of right hip: Status: Acute Assessment and Plan: Continue pain mgmnt Begin ASA for dvt ppx begin PT for RTHA Dispo planning-Pending Pain mgmnt Fall Risk Details Current Medications: Current Medications Acetaminophen (Acetaminophen 325 Mg Tablet) 650 mg PO Q6H PRN PRN Reason: Pain, Mild (Pain Scale 1-3) Aspirin (Aspirin 325 Mg Tablet) 325 mg PO BID [facility] Atorvastatin Calcium (Atorvastatin Calcium 10 Mg Tablet) 10 mg PO DAILY [facility] Last Admin: 07/15/21 07:48 Dose: 10 mg Documented by: Celecoxib (Celecoxib 200 Mg Capsule) 200 mg PO BID [facility] Last Admin: 07/15/21 07:48 Dose: 200 mg Documented by: Docusate Sodium (Docusate Sodium 100 Mg Capsule) 100 mg PO BID [facility] Last Admin: 07/15/21 07:48 Dose: 100 mg Documented by: Donepezil HCl (Donepezil Hcl 5 Mg Tablet) 5 mg PO BEDTIME [facility] Last Admin: 07/14/21 21:27 Dose: 5 mg Documented by: Hydromorphone HCl (Hydromorphone Hcl 1 Mg/Ml Syringe) 0.25 mg IVPUSH Q4H PRN; Protocol PRN Reason: Pain, Severe (Pain Scale 7-10) Last Admin: 07/15/21 07:48 Dose: 0.25 mg Documented by: Cefazolin Sodium/Dextrose (Ancef) 2 gm in 50 mls @ 100 mls/hr IV POSTOP AMEYA Lisinopril (Lisinopril 5 Mg Tablet) 5 mg PO DAILY [facility]; Protocol Last Admin: 07/15/21 07:48 Dose: 5 mg Documented by: Multivitamins/Vitamin C (Multivitamin Tablet) 1 tab PO DAILY [facility] Last Admin: 07/15/21 07:48 Dose: 1 tab Documented by: Oxycodone HCl (Oxycodone Hcl Immed Release 5 Mg Tablet) 5 mg PO Q4H PRN PRN Reason: Pain, Moderate (Pain Scale 4-6 Last Admin: 07/15/21 00:54 Dose: 5 mg Documented by: Sodium Chloride (0.9 % Sodium Chloride Flush 3 Ml Syringe) [facility] Last Admin: 07/15/21 07:49 Dose: 3 ml Documented by: Time Spent With Patient Time: Total time spent is greater than 50% in coordination of care (as documented) at patient's floor/unit and/or counseling patient: Time with patient: less than 15 minutes Quality Stroke Does the patient have a stroke diagnosis?: No VTE Prior VTE?: No VTE Risk Level:: Surgical - very high VTE Device Contraindication: N/A - Device Ordered VTE Drug Contraindication: N/A - Med Ordered
[2021-07-15] MEDS: Aspirin 325 MG TABLET PO ×2 (12:16→20:42)
--- NOTE | 2021-07-15 13:06 | P.PNIM_ITS ---
Subjective Subjective Date of Service: 07/15/21 Interval History: Feels comfortable sitting on the chair, complaining of right hip pain, denies nausea, vomiting, abdominal discomfort, no constipation, no shortness of breath, no events overnight. Review of Systems Review of Systems: Yes all other systems are reviewed and are negative Physical Exam Verdana 4l Vital Signs: Verdana 4d Verdana 4d Vital Signs: Verdana 4d Verdana 4Bd Last Vital Signs Verdana 4d Traffic Survey Technician New 4d Traffic Survey Technician New 4d Temp 98.9 F 07/15/21 11:00 Traffic Survey Technician New 4d Pulse 76 07/15/21 11:00 Traffic Survey Technician New 4d Resp 17 07/15/21 11:00 BP 130/60 07/15/21 11:00 Pulse Ox 97 07/15/21 11:00 BMI result Body Mass Index 21.4 Const: Other: Generalresting comfortably, in no acute distress. Neck supple no JVD. CVS regular rate rhythm, Respiratory lungs clear to auscultation, no respiratory distress Gastrointestinal abdomen soft, nontender, bowel sounds audible Extremities no edema. Right hip dressing in place Neuro nonfocal Skin no rash Objective Data Active Medications Acetaminophen (Acetaminophen 325 Mg Tablet) 650 mg PO Q6H PRN PRN Reason: Pain, Mild (Pain Scale 1-3) Aspirin (Aspirin 325 Mg Tablet) 325 mg PO BID [facility] Last Admin: 07/15/21 12:16 Dose: 325 mg Documented by: SELWYN Atorvastatin Calcium (Atorvastatin Calcium 10 Mg Tablet) 10 mg PO DAILY [facility] Last Admin: 07/15/21 07:48 Dose: 10 mg Documented by: SELWYN Celecoxib (Celecoxib 200 Mg Capsule) 200 mg PO BID [facility] Last Admin: 07/15/21 07:48 Dose: 200 mg Documented by: SELWYN Docusate Sodium (Docusate Sodium 100 Mg Capsule) 100 mg PO BID [facility] Last Admin: 07/15/21 07:48 Dose: 100 mg Documented by: SELWYN Donepezil HCl (Donepezil Hcl 5 Mg Tablet) 5 mg PO BEDTIME [facility] Last Admin: 07/14/21 21:27 Dose: 5 mg Documented by: CHILANGO Hydromorphone HCl (Hydromorphone Hcl 1 Mg/Ml Syringe) 0.25 mg IVPUSH Q4H PRN; Protocol PRN Reason: Pain, Severe (Pain Scale 7-10) Last Admin: 07/15/21 07:48 Dose: 0.25 mg Documented by: SELWYN Cefazolin Sodium/Dextrose (Ancef) 2 gm in 50 mls @ 100 mls/hr IV POSTOP AMEYA Lisinopril (Lisinopril 5 Mg Tablet) 5 mg PO DAILY [facility]; Protocol Last Admin: 07/15/21 07:48 Dose: 5 mg Documented by: SELWYN Multivitamins/Vitamin C (Multivitamin Tablet) 1 tab PO DAILY [facility] Last Admin: 07/15/21 07:48 Dose: 1 tab Documented by: SELWYN Oxycodone HCl (Oxycodone Hcl Immed Release 5 Mg Tablet) 5 mg PO Q4H PRN PRN Reason: Pain, Moderate (Pain Scale 4-6 Last Admin: 07/15/21 00:54 Dose: 5 mg Documented by: CHILANGO Sodium Chloride (0.9 % Sodium Chloride Flush 3 Ml Syringe) [facility] Last Admin: 07/15/21 07:49 Dose: 3 ml Documented by: SELWYN Labs CBC & Chem 7: 07/15/21 05:28 07/15/21 05:28 Labs: Laboratory Results - last 24 hr 07/15/21 07/15/21 05:28 05:28 MCV 88.3 MCH 28.4 MCHC 32.2 RDW 12.4 Plt Count 190 D MPV 10.2 Immature Gran % (Auto) 0.2 Neut % (Auto) 68.6 Lymph % (Auto) 18.0 L [place] % (Auto) 12.9 H Eos % (Auto) 0.1 Baso % (Auto) 0.2 Lymph # (Auto) 1.8 [place] # (Auto) 1.3 H Eos # (Auto) 0.0 Baso # (Auto) 0.0 Abs Immat Gran (auto) 0.02 Absolute Neuts (auto) 6.7 Absolute Nucleated RBC 0.000 Nucleated RBC % (auto) 0.0 Anion Gap 12 Estim Creat Clear Calc 62.7 Estimated GFR > 60 Fasting Glucose 115 H Calcium 8.5 D Assessment and Plan (1) Status post total replacement of right hip: Status: Acute (2) Pure hypercholesterolemia: Status: Acute (3) Benign essential hypertension: Status: Acute Plan 71-year-old woman admitted by? orthopedic surgery and is status post right hip arthroplasty Right hip arthroplasty postoperative day 1 Hematocrit dropped, patient asymptomatic, hold blood transfusion follow CBC DC IV fluids,cont stool softners Pain management, anticoagulation as per Orthopedic team Encourage incentive spirometry ,out of bed to chair. Hyperlipidemia LDL 119 on May 09, continue Lipitor home dose Hypertension BP stable, continue lisinopril Cognitive impairment continue Aricept DVT prophylaxis on aspirin b.i.d. Full code Quality Stroke Does the patient have a stroke diagnosis?: No VTE Prior VTE?: No VTE Risk Level:: Surgical - very high VTE Device Contraindication: N/A - Device Ordered VTE Drug Contraindication: N/A - Med Ordered
[2021-07-15] MEDS: Donepezil HCl 5 MG TABLET PO (20:43)
[2021-07-16 03:00] VITALS: BP 123/47; PULSE 82; RESP 17; TEMP 36.2; O2SAT 97
[2021-07-16 05:56] LABS: Anion Gap 11 (12-20); Blood Urea Nitrogen 16 mg/dL (9-16); Calcium 8.7 mg/dL (8.4-10.2); Carbon Dioxide 26 mmol/L (22-29); Chloride 104 mmol/L (96-108); Creatinine Clr Calc Pharmacy 62.7; Estimated Glomerular Filt Rate > 60; Glucose Fasting 102 mg/dL (60-99); Potassium 4.2 mmol/L (3.3-5.1); Sodium 137 mmol/L (135-145)
[2021-07-16 07:00] VITALS: BP 111/57; PULSE 82; RESP 18; TEMP 37; O2SAT 99
[2021-07-16] MEDS: 0.9 % Sodium Chloride Flush 3 ML SYRINGE IVFLUSH (07:43)
[2021-07-16] MEDS: Celecoxib 200 MG CAPSULE PO (07:43)
[2021-07-16] MEDS: Atorvastatin Calcium 10 MG TABLET PO (07:43)
[2021-07-16] MEDS: Aspirin 325 MG TABLET PO (07:43)
[2021-07-16] MEDS: Multivitamin TABLET 1 TAB PO (07:43)
[2021-07-16] MEDS: lisinopriL 5 MG TABLET PO (07:43)
[2021-07-16] MEDS: oxyCODONE HCl Immed Release 5 MG TABLET PO (07:43)
[2021-07-16] MEDS: Docusate Sodium 100 MG CAPSULE PO (07:44)
--- NOTE | 2021-07-16 07:54 | P.F2F_ITS ---
Service Date Service Date: 07/16/21 Encounter Date of encounter: 07/16/21 Reasons for Services Signs and symptoms assessed: right hip pain, weakness with ambulation, poor gait pattern. Reason for physical therapy: home safety and mobility, therapeutic exercises, restore joint function, gait/transfer training, ADL training and energy conservation Reason for occupational therapy: home safety and mobility, therapeutic exercises, restore joint function, gait/transfer training, ADL training and energy conservation MD Overseeing Care: Valdemar Palacios Homebound: Leaving the home is medically contraindicated at this time without the asist of a device and/or another person due th the listed conditions above and below. Reason homebound: unsteady gait / fall risk, pain with ambulation, poor balance / fall risk and unable to drive Homebound supporting statement: Pt. is considered home bound due to recent surgery. Unable to drive, poor balance, poor gait mechanics. Certification: Based on the above findings, I certify that this patient is confined to the home and needs intermittent custodial care, physical therapy and/or speech therapy, or continues to need occupational therapy. The patient is under my care, and I have initiated the establishment of the plan of care. The patient will be followed by a physician who will periodically review the plan of care.
--- NOTE | 2021-07-16 07:55 | P.DS_ITS ---
DS: Providers Provider Date of Service: 07/16/21 Date of admission: 07/14/21 06:15 Primary care physician: Amadeo Page MD Consults: 07/14/21 12:11 Consult to Hospitalist Routine Consulting Provider: Hospitalist Reason For Exam: routine medical management DS: Diagnosis Discharge Diagnosis (1) Status post total replacement of right hip: Status: Acute (2) Pure hypercholesterolemia: Status: Acute (3) Benign essential hypertension: Status: Acute DS: Summary Hospital Course Hospital Course: The patient underwent a successful right total hip arthroplasty, was transferred to PACU and then to the floor to recover. During their stay, their vitals were stable, afebrile at97.1 . Labs were unremarkable, H/H 9.7/30.1 . POD 1 she was started on asa for DVT ppx, they also received PT/OT services twice a day. Prior to discharge, their dressing was change, incision clean dry and intact, new Aquacel dressing applied and the plan was to be discharged home with vna svs Time Spent with Patient Time attestation: Total time spent providing and/or coordinating discharge services: Discharge coordination time: Less than 30 minutes Quality: Stroke Does the patient have a stroke diagnosis?: No Physical Exam Verdana 4l Vital Signs: Verdana 4d Verdana 4d Vital Signs: Verdana 4d Verdana 4Bd Last Vital Signs Verdana 4d Bacteriologist Medical New 4d Bacteriologist Medical New 4d Temp 97.1 F 07/16/21 03:00 Bacteriologist Medical New 4d Pulse 82 07/16/21 03:00 Bacteriologist Medical New 4d Resp 17 07/16/21 03:00 BP 123/47 L 07/16/21 03:00 Pulse Ox 97 07/16/21 03:00 BMI result Body Mass Index 21.4 Const: General: cooperative, healthy appearing and no acute distress Resp: Effort & Inspection: normal respiratory effort and able to speak in complete sentences Cardio: Rate: regular rate Peripheral pulses: Peripheral pulses 2+ throughout GI: Palpation (GI): Soft to palpation Skin: General skin exam: no rashes or lesions noted Extrem: Other: incision clean dry and intact. Pete intact. No erythema or effusion. Calf supple nontender. Neurovascularly intact. DS: Data Data Completed and Pending Pending studies at discharge: Pending at discharge 07/14/21 08:54 Surgical [PTH] Routine Labs on day of discharge: Laboratory Results - last 24 hr 07/16/21 05:23 Sodium 137 Potassium 4.2 Chloride 104 Carbon Dioxide 26 Anion Gap 11 L BUN 16 Creatinine 0.70 Estim Creat Clear Calc 62.7 Estimated GFR > 60 Fasting Glucose 102 H Calcium 8.7 Discharge Plan Discharge Patient Disposition: Home Health Service Discharge Diagnosis: RT DYLON Referrals: Leeanne Orozco PA-C [Physician Metal Flooring Installer] - 2 Weeks (07/29/21 11:30 [facility] Leeanne Orozco PA-C) Discharge Medications: New celecoxib 200 mg Capsule 200 mg PO BID 30 Days Qty: 60 0RF acetaminophen 325 mg Tablet 650 mg PO Q6H PRN (Reason: Pain, Mild (Pain Scale 1-3)) 30 Days Qty: 240 0RF aspirin 325 mg Tablet 325 mg PO BID 42 Days Qty: 84 0RF docusate sodium 100 mg Capsule 100 mg PO BID 14 Days Qty: 28 0RF oxycodone 5 mg Tablet 5 mg PO Q4H PRN (Reason: Pain, Moderate (Pain Scale 4-6) 7 Days Qty: 42 0RF Continued donepezil 5 mg tablet 5 mg PO BEDTIME Qty: 30 2RF atorvastatin 10 mg tablet 10 mg PO DAILY Qty: 90 0RF (DME) walker [facility] See Rx Instructions .MEDSUPPLY Qty: 1 0RF Rx Instructions: Folding Front wheeled walker lisinopril 5 mg tablet 5 mg PO DAILY Qty: 90 0RF (DME) miscellaneous medical supply [facility] See Rx Instructions .Route Qty: 2 0RF Rx Instructions: Raised Toilet seat (DME) Shower Chair [facility] See Rx Instructions .Route Qty: 1 0RF Rx Instructions: Shower Chair multivitamin Tablet 1 tab PO DAILY 0RF Discharge Orders: Discharge Order (Routine); Ordered 07/16/21 Ordered By: Rod Mahoney Diet: regular diet Activity on Discharge: Use cane or walker Stand Alone Forms: Patient Portal Discharge page Care Plan Goals: Restore function of joint Health Concerns: none Plan of Treatment: Physical Therapy Pain management DVT prophylaxis Assessment: * Physical Therapy for Total hip arthroplasty: posterior precautions, gait training, ROM, strength * Limit stair climbing * No showering, no tub bath-keep dressing clean, dry and intact * No driving x6 weeks * Continue Aspirin tabs once a day x 6 weeks * Follow up with [facility] Orthopedics in 2 weeks
[2021-07-16 08:21] VITALS: BP 123/47; PULSE 82; O2SAT 97
--- NOTE | 2021-07-16 13:24 | P.PNIM_ITS ---
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 Neck? sup ple no JVD. CVS? r egular rate rhythm , Respiratory lung s clear to auscult ation, no respirat ory distress Gastr ointestinal abdome n soft, nontender, bowel sounds chandler ble Extremities no edema. Right hip dressing in place Neuro nonfocal Ski n no rash Objective Data Labs CBC & Chem 7: 07/15/21 05:28 07/16/21 05:23 Labs: Laboratory Results - last 24 hr 07/16/21 05:23 Anion Gap 11 L Estim Creat Clear Calc 62.7 Estimated GFR > 60 Fasting Glucose 102 H Calcium 8.7 Assessment and Plan (1) Status post total replacement of right hip: Status: Acute (2) Pure hypercholesterolemia: Status: Acute (3) Benign essential hypertension: Status: Acute Plan 71-year-old woman admitted by? orthopedic surgery and is status post right hip arthroplasty Right hip arthroplasty postoperative day 2 good pain control, no lightheadedness dizziness Pain management, anticoagulation as per Orthopedic team Encourage incentive spirometry ,out of bed to chair. medically stable for discharge, will sign off Hyperlipidemia LDL 119 on May 09, continue Lipitor home dose Hypertension BP stable, continue lisinopril Cognitive impairment continue Aricept DVT prophylaxis on aspirin b.i.d. Full code Quality Stroke Does the patient have a stroke diagnosis?: No VTE Prior VTE?: No VTE Risk Level:: Surgical - very high VTE Device Contraindication: N/A - Device Ordered VTE Drug Contraindication: N/A - Med Ordered
== END 2021-07-16 12:07 | disposition home health service (06) | DRG 470 ==
LOC: HO.SSSA 06:33 → HO.S3 10:39
PROVIDERS: Physician Assistant; Admitting Provider Orthopaedic Surgery; PCP Internal Medicine; Visit Provider Orthopaedic Surgery
PROC: 0SR9039 Replacement of Right Hip Joint with Ceramic Synthetic Substitute, Cemented, Open Approach (ICD-10-PCS; CPT 27130; principal; 2021-07-14 07:30)
DX: M16.11 Unilateral primary osteoarthritis, right hip (principal); E78.5 Hyperlipidemia, unspecified; G31.84 Mild cognitive impairment of uncertain or unknown etiology; I10 Essential (primary) hypertension; Z20.822 Contact with and (suspected) exposure to COVID-19; Z87.891 Personal history of nicotine dependence; Z88.2 Allergy status to sulfonamides; Z91.041 Radiographic dye allergy status; Z79.899 Other long term (current) drug therapy
CPT/HCPCS: 36415; 72170; 80048; 85025; 86850; 86900; 86901; 87635; 88304; 88311; 97110; 97116; 97162; 97166; 97535; C1713; C1776; J0131; J0690; J1100; J1170; J2250; J2405; J2550; J3010

== ENCOUNTER → 2021-07-20 14:57 | Outpatient (BNVA) | payer MEDICARE, SELFPAY | PROVIDERS: PCP Internal Medicine; Visit Provider Physician Assistant | DX: Z47.1 Aftercare following joint replacement surgery (principal); Z96.641 Presence of right artificial hip joint | CPT/HCPCS: 99212 ==

== ENCOUNTER → 2021-07-29 11:26 | Outpatient (BNVA) | payer MEDICARE, SELFPAY | PROVIDERS: PCP Internal Medicine; Visit Provider Physician Assistant | DX: Z47.1 Aftercare following joint replacement surgery (principal); Z96.641 Presence of right artificial hip joint | CPT/HCPCS: 99212 ==

== ENCOUNTER 2021-07-29 12:40 | Outpatient (REF) | payer MEDICARE, SELFPAY ==
--- NOTE | ~2021-07-29 | US_ITS ---
EXAMINATION: US VENOUS ULTRASOUND WITH DOPPLER LOWER EXTREMITY, RIGHT CLINICAL INFORMATION: Right leg pain COMPARISON: None TECHNIQUE: Ultrasound of the deep veins is performed from the hip to the calf with compression sonography and color and pulse Doppler assessment. Spectral analysis with color-flow imaging is performed. FINDINGS: There is normal venous compression and respiratory variation and augmented flow. The visualized common femoral vein, superficial femoral vein, profunda femoral vein, popliteal vein, and the trifurcation region shows no evidence of deep venous thrombosis. There is no significant popliteal fossa cyst. Left common femoral vein also appears normal. If the patient's symptoms persist, followup ultrasound in 5 days 7 days might be of value to exclude proximal propagation from a non-visualized calf vein. US/US venous duplex LE RT IMPRESSION: No DVT demonstrated in the right lower extremity.
== END 2021-07-29 12:41 | disposition home or self-care (01) ==
LOC: HO.US 12:40
PROVIDERS: PCP Internal Medicine; Visit Provider Physician Assistant
DX: M79.661 Pain in right lower leg (principal); Z96.641 Presence of right artificial hip joint; Z47.1 Aftercare following joint replacement surgery; Z87.891 Personal history of nicotine dependence
CPT/HCPCS: 93971

== ENCOUNTER → 2021-08-26 11:24 | Outpatient (BNVA) | payer MEDICARE, SELFPAY | PROVIDERS: PCP Internal Medicine; Visit Provider Physician Assistant | DX: Z47.1 Aftercare following joint replacement surgery (principal); Z96.641 Presence of right artificial hip joint | CPT/HCPCS: 99212 ==

== ENCOUNTER 2021-09-22 11:00 | Outpatient (RCR) | payer MEDICARE, SELFPAY ==
[2021-08-11 11:04] VITALS: BP 106/59; PULSE 81
--- NOTE | 2021-08-11 12:13 | MHC.PT.EP ---
[facility] [place] Office [place] Office [place] Office [address] Juan Diego Zimmer [address] [phone] F: [phone] F: [phone] F: [phone] F: [phone] Physical Therapy Plan of Care Date of Evaluation: Date of Surgery: 07/14/21 Diagnosis: s/p R DYLON Assessment: Lakshmi is a 71 year old female who is referred to PT for S/P R DYLON . She is 4 weeks post op. On PT examination she presented with 1/10 pain in R hip with sleeping, TTP near suture site, decreased hip ROM, decreased hip muscle strength, altered posture, balance and gait. She lives with her daughter who helps her with ADLS as needed. She would benefit from skilled PT to address the aforementioned impairments and improve tolerance to functional activities. Frequency and Duration: The patient will be seen 2/week for 6 weeks Short Term Goals: 1. Pt will have no pain in R hip which will enable her to sleep at night in 2 weeks. 2. Pt will be able to move her hip through all planes of motion without pain which will enable her to ambulate with good push off in 3 weeks Writing Tutor Goals: 1. Pt will demonstrate an increase in muscle strength by 1 grade which will enable her ambulate with straight cane in 5 weeks. 2. Pt will be independent with HEP for symptom management and maintenance following d/c in 6 weeks. Treatment Plan: Modalities to reduce pain, spasms and effusion. Manual therapy to restore motion and function. Therapeutic exercise to improve strength and flexibility. Neuromuscular re-education for posture and balance. Therapeutic activities to return to functional activities of daily living. Electronically signed by: Cristina Solorzano PT DPT Please sign and return to therapist. Thank you for your referral.
--- NOTE | 2021-09-22 11:43 | MHC.PT.DC ---
[facility] [place] Office [place] Office [place] Office [address] Juan Diego Zimmer [address] [phone] F: [phone] F: [phone] F: [phone] F: [phone] Physical Therapy Discharge Report Diagnosis: s/p R DYLON Date of Surgery: 07/14/21 Date of Evaluation: 08/11/21 Date of Discharge: Treatments to Date: 13 Cancellations to Date: 0 No Shows to Date: 0 Discharge Status: Discharge Summary: 09/22: Lakshmi continues to do well. She was given an updated copy of her HEP so that it is more concise and easy to follow. She understands that she needs to continue her exercises on her own and stay active. She has no pain, good ROM and strength and has returned to normal functional daily routine where she is I. She performs stairs with reciprocal gait pattern and does not need an assistive device to ambulate. DC to HEP 09/20: Lakshmi is doing well, ready for DC next visit. I put together a more updated HEP for her for next session. She is aware of DC and that she will be seeing someone new on her last day. Continues to be forget and needs cues still with exercise program and counting. However, she is ready for DC at this time and is functional/safe. 09/15: No adverse reactions noted with tx. She continues to need cues. She has no pain with the session. Plan to DC in 2 visits. 09/13: 3 more remaining appointments, continued POC with education once again regarding stairs at home. Patient reports still performing step to, we discussed again her strength and ability to return to normal functional routine. 09/08: Lakshmi has 4 more scheduled appointments, 2x/wk for 2 more wks and should be ready for DC at that time. She is concerned about her knee valgus, I educated her that due to hip weakness this is probably the cause (however reports limited compliance with any exercises at home). Needs cues for memory of exercises throughout the session. 09/06: This is the third session Lakshmi has asked me about hip precautions. I provided her with another hand out. I gave her and her daughter one on the second appointment as well. She has 3 more visits scheduled and then we are planning on DC. She reports rare compliance with HEP at home. 09/01: Lakshmi is ambulating with slight antalgic pattern still. Focused on strengthening in standing again. Demos good tolerance for exercises without increase in pain. Instructed in band hip work at home with ed on donning band without breaking hip precautions. 08/30: Notes that she has knee valgus on the stepper. Educated on anatomy and need for strengthening. Instructed in glut activation exercises in standing today and education on gastroc stretching and strengthening for gait pattern. She was appropriately fatigued s/p session. Ended with ice. Cleared for driving per patient and returns to surgeon for follow up tomorrow. 08/25: Pt reports she only has a few exercises and does not do them every day; tolerated 8 step well as well as counter squat which was added to HEP. No adverse effects. or pain noted with activities. reports f/u with ortho [facility]. 08/23/2021: Continues to do well. She completes all exercises without increases in pain. Fatigue notable as she progresses through. Good carry over with post op precautions today. Conscious of stepping to turn at top of steps instead of pivoting. Noted some circumduction when ascending stairs which mostly resolved with cues. Able to ascend and descend step over step today. 08/18: Lakshmi is doing well. She is compliant with HEP at home. Her daughter is here today to learn about PT. I educated them both on her precautions once more. She tolerated all exercises well but did not concentrate on counting sets and reps. I educated her to avoid overdoing her exercises. Began stair training today and updated her HEP. No adverse reactions noted except with hip extension wall slide which caused some groin pain, held this exercise for now and performed the hip extension stretch off the mat with heat instead. Lakshmi arrived stating she is feeling better. She was continued with B LE strengthening exercises and stretches. Standing weight shift introduced with forward and back noyola stepping. She came in with the cane today and stated she walks without AD at home. Lakshmi is progressing well. No adverse response noted to any exercise. Electronically signed by: Please sign and return to therapist. Thank you for your referral.
== END 2021-09-22 11:47 | disposition home or self-care (01) ==
LOC: HO.PTCHIC 11:00
PROVIDERS: Visit Provider Physician Assistant
DX: Z96.641 Presence of right artificial hip joint (principal)
CPT/HCPCS: 97110; 97112; 97161; 97530

== ENCOUNTER 2021-10-11 07:23 | Outpatient (REF) | payer MEDICARE, SELFPAY ==
--- NOTE | ~2021-10-11 | XR_ITS ---
EXAMINATION: PELVIS AND RIGHT HIP X-RAY CLINICAL INFORMATION: Pain COMPARISON: Previous exam June 2021 TECHNIQUE: One view of the pelvis and 2 views of the right hip FINDINGS: There is a right hip replacement in satisfactory position. No fracture, dislocation or x-ray evidence of loosening is seen. 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 Bones of the pelvis are normal. There are degenerative changes of the lower lumbar spine. Soft tissues are normal. XR/XR pelvis 1-2V IMPRESSION: Satisfactory appearance of right hip replacement.
--- NOTE | ~2021-10-11 | XR_ITS ---
EXAMINATION: PELVIS AND RIGHT HIP X-RAY CLINICAL INFORMATION: Pain COMPARISON: Previous exam June 2021 TECHNIQUE: One view of the pelvis and 2 views of the right hip FINDINGS: There is a right hip replacement in satisfactory position. No fracture, dislocation or x-ray evidence of loosening is seen. 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 Bones of the pelvis are normal. There are degenerative changes of the lower lumbar spine. Soft tissues are normal. XR/XR hip RT 1V IMPRESSION: Satisfactory appearance of right hip replacement.
== END 2021-10-11 07:24 | disposition home or self-care (01) ==
LOC: HO.HOSX 07:23
PROVIDERS: Visit Provider Orthopaedic Surgery
DX: Z47.1 Aftercare following joint replacement surgery (principal); Z96.641 Presence of right artificial hip joint
CPT/HCPCS: 72170; 73501; 99212

== ENCOUNTER 2021-10-11 15:36 | Outpatient (REF) | payer MEDICARE, SELFPAY ==
[2021-10-11 15:53] LABS: MANUAL DIFF FLAG NO
[2021-10-11 16:26] LABS: Basophils Absolute Auto 0.1 X10*3/uL (0.0-0.2); Basophils Percent Auto 0.8 % (0-2); Eosinophils Absolute Auto 0.1 X10*3/uL (0.0-0.4); Eosinophils Percent Auto 1.1 % (0-4); Hematocrit 37.4 % (37.0-47.0); Hemoglobin 11.8 g/dl (12.0-16.0); Imm Gran Abs Auto 0.01 X10*3/uL (0.00-0.03); Imm Gran Pct Auto 0.2 % (0.0-0.4); Lymphocytes Absolute Auto 2.2 X10*3/uL (1.2-4.9); Mean Corpuscular HGB Conc 31.6 g/dl (31.0-35.0); Mean Corpuscular Hemoglobin 26.5 pg (27.0-33.0); Mean Corpuscular Volume 83.9 fL (80.0-98.0); Mean Platelet Volume 10.5 fL (9.4-12.3); Monocytes Absolute Auto 0.6 X10*3/uL (0.1-1.2); Monocytes Percent Auto 8.6 % (2-11); Neutrophils Absolute Auto 3.5 x10*3/uL (2.0-8.3); Neutrophils Percent Auto 55.3 % (45-73); Platelet Count 267 X10*3/uL (160-400); Red Blood Count 4.46 X10*6/uL (4.20-5.50); Red Cell Distribution Width 14.1 % (11.0-16.0); White Blood Count 6.4 X10*3/uL (4.8-10.8)
[2021-10-11 16:56] LABS: Alanine Aminotransferase 66 U/L (0-31); Albumin Level 4.3 g/dL (3.5-5.0); Alkaline Phosphatase 72 U/L (39-117); Anion Gap 13 (12-20); Aspartate Amino Transferase 54 U/L (5-31); Bilirubin Total 0.6 mg/dL (0.0-1.0); Blood Urea Nitrogen 13 mg/dL (9-16); Calcium 9.9 mg/dL (8.4-10.2); Carbon Dioxide 25 mmol/L (22-29); Chloride 103 mmol/L (96-108); Cholesterol 214 mg/dL; Estimated Glomerular Filt Rate > 60; Glucose Fasting 86 mg/dL (60-99); HDL Cholesterol 57 mg/dL; LDL Cholesterol Calculated 126 mg/dl; Potassium 4.4 mmol/L (3.3-5.1); Sodium 137 mmol/L (135-145); Total Protein 7.5 g/dL (6.5-8.0); Triglycerides 159 mg/dL
[2021-10-11 17:30] LABS: Folate > 20.0 ng/mL (> or = 4.0); Vitamin B12 450 pg/mL (200-900)
== END 2021-10-11 15:37 | disposition home or self-care (01) ==
LOC: HO.LAB 15:36
PROVIDERS: PCP Internal Medicine; Visit Provider Internal Medicine
DX: E78.00 Pure hypercholesterolemia, unspecified (principal); E53.8 Deficiency of other specified B group vitamins; I10 Essential (primary) hypertension
CPT/HCPCS: 36415; 80053; 80061; 82607; 82746; 85025

== ENCOUNTER 2022-04-11 10:37 | Outpatient (REF) | payer MEDICARE, SELFPAY ==
--- NOTE | ~2022-04-11 | MM_ITS ---
EXAMINATION: MM SCREENING DIGITAL BREAST TOMOSYNTHESIS, BILATERAL CLINICAL INFORMATION: Screening. Asymptomatic. The lifetime risk of breast cancer based on the Tyrer-Cuzick Model is 2.8%. COMPARISON: Mammography: April 09, 2021 and studies dating back to August 10, 2015 TECHNIQUE: Digital breast tomosynthesis is performed in both the craniocaudal and mediolateral oblique views along with computer-aided detection (CAD). Synthesized 2D images are generated from the tomosynthesis. FINDINGS: There are scattered areas of fibroglandular density (ACR BI-RADS breast composition Category b). There are no significant masses, abnormal calcifications, or other abnormalities. MM/MM tomosynthesis screening BI IMPRESSION: No significant changes from prior exam. ASSESSMENT: BI-RADS 1: Negative RECOMMENDATION: Routine annual mammography screening. This patient's information was entered into a reminder system with a target due date for their next mammogram.
== END 2022-04-11 10:38 | disposition home or self-care (01) ==
LOC: HO.MAMMO 10:37
PROVIDERS: Visit Provider Internal Medicine
DX: Z12.31 Encounter for screening mammogram for malignant neoplasm of breast (principal)
CPT/HCPCS: 77063; 77067

== ENCOUNTER 2022-08-01 10:23 | Outpatient (REF) | payer MEDICARE, SELFPAY ==
[2022-08-01 11:28] LABS: MANUAL DIFF FLAG NO
[2022-08-01 11:41] LABS: Basophils Absolute Auto 0.1 X10*3/uL (0.0-0.2); Basophils Percent Auto 0.9 % (0-2); Eosinophils Absolute Auto 0.1 X10*3/uL (0.0-0.4); Eosinophils Percent Auto 2.7 % (0-4); Hematocrit 38.3 % (37.0-47.0); Hemoglobin 12.2 g/dl (12.0-16.0); Imm Gran Abs Auto 0.02 X10*3/uL (0.00-0.03); Imm Gran Pct Auto 0.4 % (0.0-0.4); Lymphocytes Absolute Auto 1.5 X10*3/uL (1.2-4.9); Mean Corpuscular HGB Conc 31.9 g/dl (31.0-35.0); Mean Corpuscular Hemoglobin 29.1 pg (27.0-33.0); Mean Corpuscular Volume 91.4 fL (80.0-98.0); Mean Platelet Volume 10.2 fL (9.4-12.3); Monocytes Absolute Auto 0.6 X10*3/uL (0.1-1.2); Monocytes Percent Auto 10.8 % (2-11); Neutrophils Percent Auto 56.2 % (45-73); Platelet Count 274 X10*3/uL (160-400); Red Blood Count 4.19 X10*6/uL (4.20-5.50); Red Cell Distribution Width 13.9 % (11.0-16.0); White Blood Count 5.3 X10*3/uL (4.8-10.8)
[2022-08-01 12:52] LABS: Alanine Aminotransferase 26 U/L (0-31); Albumin Level 4.1 g/dL (3.5-5.0); Alkaline Phosphatase 74 U/L (39-117); Anion Gap 17 (12-20); Aspartate Amino Transferase 30 U/L (5-31); Bilirubin Total 0.9 mg/dL (0.0-1.0); Blood Urea Nitrogen 10 mg/dL (9-16); Calcium 9.3 mg/dL (8.4-10.2); Carbon Dioxide 25 mmol/L (22-29); Chloride 102 mmol/L (96-108); Cholesterol 223 mg/dL; Estimated Glomerular Filt Rate > 60; Glucose Fasting 90 mg/dL (60-99); HDL Cholesterol 74 mg/dL; LDL Cholesterol Calculated 119 mg/dl; Sodium 140 mmol/L (135-145); Total Protein 7.3 g/dL (6.5-8.0); Triglycerides 151 mg/dL
[2022-08-01 12:59] LABS: Folate 19.5 ng/mL (> or = 4.0); TSH reflex Free T4 2.22 uIU/mL (0.32-4.0); Vitamin B12 576 pg/mL (200-900); Vitamin D 25-OH Total 70.2 ng/mL (>30)
[2022-08-01 14:08] LABS: Appearance Urine Clear; Color Urine Yellow; Glucose Urine UA Negative (Negative); Leukocyte Esterase Urine Negative (Negative); Nitrite Urine Negative (Negative); PH 6.5 (5.0-9.0); Urine Blood Negative (Negative); Urine Ketones Negative (Negative); Urine Protein Negative (Neg-Trace)
== END 2022-08-01 10:24 | disposition home or self-care (01) ==
LOC: HO.HMGCLDS 10:23
PROVIDERS: PCP Internal Medicine; Visit Provider Internal Medicine
DX: Z00.00 Encounter for general adult medical examination without abnormal findings (principal); E55.9 Vitamin D deficiency, unspecified; E53.8 Deficiency of other specified B group vitamins; R30.0 Dysuria; E78.00 Pure hypercholesterolemia, unspecified; I10 Essential (primary) hypertension
CPT/HCPCS: 36415; 80053; 80061; 81003; 82306; 82607; 82746; 84443; 85025

== ENCOUNTER 2022-12-02 15:29 | Outpatient (REF) | payer MEDICARE, SELFPAY ==
[2022-12-02 17:46] LABS: Alanine Aminotransferase 23 U/L (0-31); Albumin Level 4.4 g/dL (3.5-5.0); Alkaline Phosphatase 74 U/L (39-117); Anion Gap 15 (12-20); Aspartate Amino Transferase 27 U/L (5-31); Bilirubin Total 1.3 mg/dL (0.0-1.0); Blood Urea Nitrogen 16 mg/dL (9-16); Calcium 9.7 mg/dL (8.4-10.2); Carbon Dioxide 24 mmol/L (22-29); Chloride 102 mmol/L (96-108); Cholesterol 206 mg/dL; Estimated Glomerular Filt Rate > 60; Glucose Fasting 92 mg/dL (60-99); HDL Cholesterol 67 mg/dL; LDL Cholesterol Calculated 113 mg/dl; Potassium 4.2 mmol/L (3.3-5.1); Sodium 137 mmol/L (135-145); Total Protein 8.1 g/dL (6.5-8.0); Triglycerides 131 mg/dL
== END 2022-12-02 15:30 | disposition home or self-care (01) ==
LOC: HO.LAB 15:29
PROVIDERS: PCP Internal Medicine; Visit Provider Internal Medicine
DX: E78.00 Pure hypercholesterolemia, unspecified (principal)
CPT/HCPCS: 36415; 80053; 80061